=== PATIENT | female | born 1950 | race Caucasian/White ===

== ENCOUNTER 2017-08-19 15:42 | Emergency (ER) | payer OTHER ==
[~2017-08-19] VITALS: Ht 160 cm; Wt 58.4 kg
[~2017-08-19 15:42] MED LIST: ASPIRIN81 M1 PO; CALTRATE 600600 MG PO; CALTRATE PLUS1 EACH PO; CRESTOR20 MG; CRESTOR20 MG PO; FIBER FORCE; FIBER FORCE PO; GLIMEPIRIDE1 MG PO; GLUCOSAMINE-CH1 EA19 PO; LISINOPRIL40 MG PO; LO-DOSE ASPIRIN81 M1 PO; METFORMIN HCL500 M1 PO; METFORMIN HCL500 MG PO; METOPROLOL TART25 MG PO; NIFEDIPINE ER 60 MG; NIFEDIPINE ER60 MG PO; NORCO 5/3251 TABLET PO; OMEPRAZOLE40 M1 PO; OSTEO BI-FLEX1 EACH PO; PEPCID40 MG PO; POTASSIUM GLUCO2 MEQ PO; POTASSIUM GLUCONATE PO; TOVIAZ4 MG PO; TRAMADOL HCL50 MG; TRAMADOL HCL50 MG PO; TRILIPIX135 MG PO; TYLENOL EXTRA500 MG PO; VITAMIN D2000 UNIT PO; VITAMIN D32000 UNIT PO; ZESTRIL,PRINIVI40 MG PO; ZOFRAN4 MG PO
[2017-08-19 16:55] VITALS: BP 136/83
== END 2017-08-19 16:56 | disposition home or self-care (01) ==
LOC: EME 15:42
DX: M43.6 Torticollis (principal); M25.60 Stiffness of unspecified joint, not elsewhere classified; V49.60XA Unspecified car occupant injured in collision with unspecified motor vehicles in traffic accident, initial encounter; Y92.410 Unspecified street and highway as the place of occurrence of the external cause; I10 Essential (primary) hypertension; E78.5 Hyperlipidemia, unspecified; E11.9 Type 2 diabetes mellitus without complications; Z79.84 Long term (current) use of oral hypoglycemic drugs; Z79.82 Long term (current) use of aspirin
CPT/HCPCS: 99281; 99283